=== PATIENT | male | born 1955 | race Caucasian/White ===

== ENCOUNTER 2024-02-25 07:46 | Inpatient (IN) | payer MEDICARE, OTHER, SELFPAY ==
[2024-02-25] VITALS (13 sets, daily range): BP systolic 14–134; BP diastolic 56–92; BMI 24.3; BMI 23.6
[2024-02-25 03:32] LABS: % Basophils 0.6 % (0-2); % Eosinophils 2.4 % (0-6); % Immature Granulocytes 0.3 % (0-0.5); % Lymphocytes 10.2 % (20.5-51.1); % Monocytes 13.4 % (1.7-9.3); % Neutrophils 73.1 % (42.2-75.2); Absolute Basophils 0.1 10^3/uL (0-0.2); Absolute Eosinophils 0.2 10^3/uL (0-0.7); Absolute Lymphocytes 0.9 10^3/uL (1.2-3.4); Absolute Monocytes 1.2 10^3/uL (0.1-0.6); Absolute Neutrophils 6.4 10^3/uL (1.4-6.5); Hematocrit 45.1 % (39.0-52.0); Mean Corp Hgb Conc. 35.5 g/dL (33.0-37.0); Mean Corpuscular Hgb 31.2 pg (27.0-31.0); Mean Corpuscular Volume 87.9 fL (80.0-94.0); Mean Platelet Volume 9.5 fL (7.4-10.4); Nucleated Red Blood Cells % 0 % (-); Platelet Count 214 10^3/uL (130-400); Red Blood Cell Count 5.13 10^6/uL (4.70-6.10); Red Cell Dist. Width 12.3 % (11.5-14.5); White Blood Cell Count 8.7 10^3/uL (4.8-10.8)
[2024-02-25 03:42] LABS: ALT (SGPT) 18 U/L (0-50); AST (SGOT) 21 U/L (17-59); Albumin 3.9 g/dl (3.5-5.0); Alkaline Phosphatase 45 U/L (38-126); Blood Urea Nitrogen 33 mg/dl (9-20); Calcium 9.4 mg/dl (8.4-10.2); Carbon Dioxide 26 mmol/L (22-30); Chloride 101 mmol/L (98-107); Estimated Creatinine Clearance 50 ml/min; Glucose 110 mg/dl (70-99); Lipase 556 U/L (23-300); Potassium 3.2 mmol/L (3.5-5.1); Sodium 139 mmol/L (135-145); Total Protein 6.2 g/dl (6.3-8.2); eGFR 51.03
--- NOTE | 2024-02-25 05:01 | ED.GENMED ---
History of Present Illness
General
Chief Complaint: Abdominal Pain
Source: patient
Exam Limitations: none
Time Seen by Provider: 02/25/24 03:59
Nursing documentation reviewed up to this point in time: agreed with
History of Present Illness
History of Present Illness:
68-year-old male presents with 4 weeks of worsening abdominal pain. Denies fever, chills, jaundice, nausea or vomiting. He states that his bowel movements have been normal. Patient does report having hiccups for the last 4 days. Pleasant history
of coronary artery disease hypertension hyperlipidemia. Has a history of of basal cell carcinoma. States that he drinks 2 ounces of alcohol per day. Does not smoke or engage in illicit drug use.
Review of Systems
Review of Systems
Allergies reviewed?: Yes
Other source history: family
All Other Systems: ROS reviewed and negative except as documented in HPI and ROS
Constitutional: Reports no symptoms; Denies weight loss
EENT: Reports no symptoms
Respiratory: Reports no symptoms
Cardiac: Denies chest pain or palpitations
ABD/GI: Reports abdominal pain and other (Hiccups); Denies nausea, vomiting, diarrhea, constipated, bloody stools, black stools or anorexia
: Reports no symptoms
Musculoskeletal: Reports no symptoms
Skin: Reports no symptoms
Neurological: Reports no symptoms
Endocrine: Reports no symptoms
Hematologic/Lymphatic: Reports no symptoms
Psychiatric: Reports no symptoms
Phy Exam
General Physical Exam
General Presentation: well appearing and no apparent distress
General Skin: warm and dry
General Habitus: normal
General Mental: alert
General Hydration: appears well hydrated
ENT Exam
ENT Exam: EOMI, pharynx normal, neck supple and normocephalic
Eye Exam
Eye Exam: PERRL, cornea clear and conjunctiva normal
Cardiovascular Exam
Cardiovascular Exam: regular rate/rhythm, no edema, no murmur and normal peripheral pulses
Pulmonary Exam
Pulmonary Exam: lungs clear, no respiratory distress, no rales, no crackles, no rhonchi, no stridor, no wheezing and no cough
Gastrointestinal Exam
Gastrointestinal Exam: normal bowel sounds, non tender, soft, no organomegaly, no pulsatile mass and non distended
Neurological Exam
Neurological Exam: alert, oriented x3, no motor deficits and speech normal
Musculoskeletal Exam
Musculoskeletal Exam: full ROM and no edema
Skin Exam
Skin Exam: normal color, warm/dry, no rash and no petechia
Psychiatric Exam
Psychiatric Exam: normal mood/affect
Course
Orders/Labs/Results
Orders:
Orders
02/25/24 03:09
IV Insert/Care/Rem.- Treatment PRN
02/25/24 03:25
Complete Blood Count/With Diff Urgent
Comprehensive Metabolic Panel Urgent
Lipase Urgent
Urinalysis Reflex To Culture Urgent
Date Specimen was Collected: 02/25/24
Time Specimen was Collected: 03:09
02/25/24 03:38
ECG [Electrocardiogram (*1)] Urgent
Reason for Study: Abdominal Pain
Cardiology Consult: Unknown
02/25/24 03:39
EKG- Treatment ONCE
02/25/24 03:59
CT Abd/pelvis W Iv Cont Urgent
Comment:
Reason For Exam: abdominal pain
02/25/24 05:39
Morphine Sulfate 4 mg IV NOW STA
02/25/24 05:40
Ondansetron Injectable [Zofran] 4 mg IV NOW STA
02/25/24 06:00
Flush (0.9% Sodium Chloride) [Flush (Nss)] See Dose Instructions IV PER PROTOCOL
Lactated Ringers [Lr] 1,000 ml IV 250 mls/hr
02/25/24 06:06
Add On- LAB Routine
Tests Added?: magnesium
Potassium Chloride [KCl] 20 meq 0.9% Sodium Chloride 250 ml [Nss] 250 ml IV NOW
Abnormal Lab Results
02/25/24
03:25
MCH 31.2 H pg
(27.0-31.0)
Absolute Lymphs (auto) 0.9 L 10^3/uL
(1.2-3.4)
Absolute Monos (auto) 1.2 H 10^3/uL
(0.1-0.6)
Lymphocytes % 10.2 L %
(20.5-51.1)
Monocytes % 13.4 H %
(1.7-9.3)
Potassium 3.2 L mmol/L
(3.5-5.1)
BUN 33 H mg/dl
(9-20)
Creatinine 1.5 H mg/dL
(0.7-1.3)
Glucose 110 H mg/dl
(70-99)
Total Protein 6.2 L g/dl
(6.3-8.2)
Lipase 556 H U/L
(23-300)
02/25/24 03:25
02/25/24 03:25
Vital Signs
Initial and Last Documented VS:
Initial Vital Signs
Temp Pulse Resp BP Pulse Ox
99.3 F 63 18 134/92 98
02/25/24 02:54 02/25/24 02:54 02/25/24 02:54 02/25/24 02:54 02/25/24 02:54
Last Documented Vital Signs
Temp Pulse Resp BP Pulse Ox
99.3 F 74 23 131/77 98
02/25/24 02:54 02/25/24 04:15 02/25/24 04:15 02/25/24 04:00 02/25/24 04:15
MDM/Problems Addressed
Differential Diagnosis Includes:
Pancreatitis, gallstone pancreatitis, pancreatic cancer
MDM/Problems Addressed:
68-year-old male with 4 weeks of worsening abdominal pain
*Radiology
Radiology exam reviewed: radiology read reviewed
*Critical Care Note
Total Time (30-74mins, 75-104mins- exclusive of procedures): Not Applicable
Update Note
Update Note:
CT abdomen and pelvis with IV contrast
IMPRESSION:
Inflammation about the pancreatic head suggesting pancreatitis; correlate with lipase. Masslike appearance of the pancreatic head suspicious for pancreatic malignancy. Multiple cystic foci. Recommend ERCP/EUS.
Mild cardiomegaly and coronary artery disease. Small hiatal hernia. Hepatic steatosis. No cholecystitis. No obstructing renal stone. Appendix is normal. No bowel obstruction. Diffuse athero-'s chronic disease of the aorta and its branches.
Spine degeneration.
Finalized at 4:43 AM EST
Lipase is 556
ED Attending Note
-
Portions of this chart may have been created with voice recognition software.� Occasional wrong word or��sound alike� substitutions may have occurred due to the inherent limitations of voice recognition software.
Discharge Plan
Departure
Patient Disposition: Admit
Date of Disposition: 02/25/24
Time of Disposition: 05:09
Admit to: Telemetry
Presentation/result/management discussed w/ accepting MD/DO: Hospitalist
Condition: Fair
Discharge Problem:
Acute pancreatitis, Mass of head of pancreas, Hiccups
Prescriptions:
No Action
[place] 3
2 g PO DAILY
Repatha Syringe
See Rx Instructions .ROUTE .COMPLEX
Rx Instructions:
140 mg intramuscularly q 14 days
aspirin
81 mg PO DAILY
ezetimibe
10 mg PO DAILY
losartan-hydrochlorothiazide
1 tab PO DAILY
Rx Instructions:
100/25 mg
nebivolol
10 mg PO DAILY
pantoprazole
40 mg PO DAILY
testosterone
0.4 ml SC WEEKLY
Rx Instructions:
200mg/ml
Referrals:
Carmen Debra,Ritesh, REHABILITATION COORDINATOR [Family Provider] -
Interventions
Interventions:
*Risk Screen - Suicide Last Done: 02/25/24 03:34
*General Assessment Last Done: 02/25/24 03:34
*Neglect/Abuse Screening Last Done: 02/25/24 03:34
ED- Fall Risk Assessment Last Done: 02/25/24 03:34
*ED COVID-19 Vaccine History Last Done: 02/25/24 03:34
ZC-Pvrffa-Ttbaocprno Assessment Last Done: 02/25/24 03:34
Discharge Date and Time
Print Language: MALTESE
[2024-02-25] MEDS: LR 1000 IV ×4 (05:37→22:05)
[2024-02-25] MEDS: MORPHINE SULFATE 4 MG IV (05:46)
[2024-02-25] MEDS: ZOFRAN 4 MG IV ×2 (05:47→16:03)
--- NOTE | 2024-02-25 05:47 | HPS.HSE ---
Family Physician
-
Family Physician: DAPHNEY Garner
Chief Complaint
-
abdominal pain
History of Present Illness
Mr. Dustin Hough is a 68 yo man wih hx basal cell carcinoma, daily alcohol use (2 oz alcohol/day) presents to the ER with abdominal pain x 4 weeks and hiccups over past 4 days to the point he's having difficulty sleeping.
Pain stretches across upper abdomen. He has been eating and drinking ok. Over the past 4 days he couldn't sleep secondary to hiccups which is what caused him to come to the ER. No fevers/chills. + nausea and vomiting from severe hiccups. No
diarrhea. No rash. No LE swelling. No weight loss.
Medical History
Past Medical History
Past Medical History: Reports GERD and HTN
Past Surgical History: Reports Other
Social History
Alcohol: Daily
Family History
Family History: Not pertinent
Allergies / Home Medications
Allergies reflects when Allergies were last updated in [facility].
Home Medications with original date entered in [facility]
Allergy/Medication List:
Allergies
Allergy/AdvReac Type Severity Reaction Status Date / Time
No Known Allergies Allergy Unverified 02/25/24 02:54
Home Medications
[place] 3 2 g PO DAILY 02/25/24
Repatha Syringe See Rx Instructions .Route .COMPLEX 02/25/24
aspirin 81 mg PO DAILY 02/25/24
ezetimibe 10 mg PO DAILY 02/25/24
losartan-hydrochlorothiazide 1 tab PO DAILY 02/25/24
nebivolol 10 mg PO DAILY 02/25/24
pantoprazole 40 mg PO DAILY 02/25/24
testosterone 0.4 ml SC WEEKLY 02/25/24
Review of Systems
-
History Source: Patient
A 12 point ROS was completed and negative except as noted: Yes
Physical Exam
Vital Signs
Vital Signs
Temp Pulse Resp BP Pulse Ox
99.3 F 74 23 131/77 98
02/25/24 02:54 02/25/24 04:15 02/25/24 04:15 02/25/24 04:00 02/25/24 04:15
Physical Exam
General: No Apparent Distress
HEENT: PERRLA
Respiratory: Clear; No Wheezes
Cardiac: S1/S2 and Regular Rhythm
GI: Other (tenderness mid epigastric region, no rebound or guarding )
Musculoskeletal: No Edema
Skin: Warm and Dry; No Rash
Neuro: AO x 3
Psych: Calm
Laboratory Results
-
02/25/24 03:25
02/25/24 03:25
Laboratory Results
Total Bilirubin 1.0 mg/dl (0.2-1.3) 02/25/24 03:25
AST 21 U/L (17-59) 02/25/24 03:25
ALT 18 U/L (0-50) 02/25/24 03:25
Alkaline Phosphatase 45 U/L (38-126) 02/25/24 03:25
Lipase 556 U/L (23-300) H 02/25/24 03:25
Data Reviewed
-
Diagnostic Radiology: Report Reviewed by me
Lab Data: Labs Reviewed by me
Impression/Plan
-
Mr. Dustin Hough is a 68 yo man wih hx basal cell carcinoma, daily alcohol use (2 oz alcohol/day) presents to the ER with abdominal pain x 4 weeks and hiccups over past 4 days to the point he's having difficulty sleeping.
Triage VS: T 99.3, P 63, RR 18, BP 134/92, SpO2 98%
LABS: WBC 8.7, Hg 16, PLT 214, Na 139, K+ 3.2, Cl 101, CO2 26, BUN 33, Cr 1.5, Glucose 110, liver enzymes WNL, Lipase 556
Abdomen/Pelvis CT with IV Contrast:
Inflammation about the pancreatic head suggesting pancreatitis; correlate with lipase. Masslike appearance of the pancreatic head suspicious for pancreatic malignancy. Multiple cystic foci. Recommend ERCP/EUS.
Mild cardiomegaly and coronary artery disease. Small hiatal hernia. Hepatic steatosis. No cholecystitis. NO obstructing renal stone. Appendix is normal. No bowel obstruction. Diffuse athero's chronic disease of the aorta and its branches.
Spine degeneration.
Pancreatitis
Abnormal CT with masslike appearance of pancreatic head
-admit to med/surg
-NPO
-LR @ 125
-GI consult (discussed with Dr. Mariscal this morning)
-MRI with and without contrast
-will likely need eventual ERCP/EUS
-pain control
-patient aware of concern for malignancy
-hold COMPUTER TECHNOLOGY TEACHER asa for now
Hiccups
-trial of reglan
Hypokalemia
-replete
-add on Mag
CAD
-COMPUTER TECHNOLOGY TEACHER Ezetimibe
-hold asa pre-biopsy
-COMPUTER TECHNOLOGY TEACHER Nebivolol
-receives Repatha injections outpatient
Acute Kidney Injury
-outpatient labs 11/18 with creatinine 1.35; creatinine 1.5 today. likely minor component of pre-renal injury given vomiting
-IVF as above
-monitor (lida post contrast)
Essential HTN
-hold COMPUTER TECHNOLOGY TEACHER Losartan/HCTZ for now
-COMPUTER TECHNOLOGY TEACHER Nebivolol
DVT PPx SCD
FULL CODE
76 minutes spent on patient evaluation
[2024-02-25 06:01] LABS: Urine Albumin Negative (Neg - Trace); Urine Bilirubin Negative (Negative); Urine Character Clear (Clear); Urine Color Yellow; Urine Glucose Negative (Negative); Urine Ketone 1+ (Negative); Urine Leukocyte Trace (Negative); Urine Nitrite Negative (Negative); Urine Occult Blood Negative (Negative); Urine Urobilinogen Negative (Neg - 1+); Urine pH 6.5 (5.0-9.0)
[2024-02-25] MEDS: KCL 260 MEQ IV (06:23)
[2024-02-25 06:35] LABS: Urine Bacteria Few (Negative); Urine Mucus Few
[2024-02-25 07:10] LABS: Magnesium 1.5 mg/dl (1.6-2.3)
[2024-02-25] MEDS: REGLAN 10 MG IV (07:21)
[2024-02-25] MEDS: PROTONIX IV 40 MG IV (07:22)
--- NOTE | 2024-02-25 10:24 | CON.GI ---
Consultation
-
Date/Time Consultation Requested: 02/25/2024
Date/Time Consultation Performed: 02/25/2024
Performing Provider: Lokesh Mariscal
Reason for Consultation: abnormal CT of GI tract
Medical History
Chief Complaint / HPI
Chief Complaint: abdominal pain, hiccups, abnormal CT of abdomen
History of Present Illness:
The patient is a 68 year old male w/ hx BCC, and CAD who p/w abdominal pain for past 4 weeks and associated hiccups. His pain is located in upper abdomen and had associated vomiting. Denies previous h/o pancreatitis. He drinks 2 oz of vodka
daily. No prior h/o jaundice.
Past Medical History
Past Medical History: GERD and HTN
Past Surgical History: Other
Social History
Tobacco: Former Smoker
Alcohol: Daily
Family History
Family History: Reviewed & Not Pertinent
Allergies / Home Medications
Allergy/AdvReac Type Severity Reaction Status Date / Time
No Known Allergies Allergy Unverified 02/25/24 02:54
�Medication �Instructions �Recorded
aspirin 81 mg chewable tablet 81 mg PO DAILY 02/25/24
evolocumab 140 mg/mL subcutaneous 140 mg SC Q2W 02/25/24
pen injector (Repatha SureClick)
ezetimibe 10 mg tablet (Zetia) 10 mg PO DAILY 02/25/24
losartan 100 1 tab PO DAILY 02/25/24
mg-hydrochlorothiazide 25 mg tablet
nebivolol 10 mg tablet 10 mg PO DAILY 02/25/24
omega-3 acid ethyl esters 1 gram 2 cap PO DAILY 02/25/24
capsule (Lovaza)
pantoprazole 40 mg tablet,delayed 40 mg PO DAILY 02/25/24
release (Protonix)
tadalafil 10 mg tablet 10 mg PO DAILYPRN PRN ed 02/25/24
testosterone enanthate 200 mg/mL 80 mg IM SA 02/25/24
intramuscular oil
Review of Systems
Vital Signs
Temp Pulse Resp BP Pulse Ox
99.3 F 80 12 124/77 97
02/25/24 02:54 02/25/24 07:30 02/25/24 07:30 02/25/24 07:00 02/25/24 08:45
Physical Exam
Exam
General: Well Developed and Well Nourished
HEENT: Normocephalic and Anicteric
Respiratory: Clear
Cardiac: S1/S2
GI: Soft, Non Distended and Tender (mildly tender to palpation in epigastric region)
Results
WBC 8.7 10^3/uL (4.8-10.8) 02/25/24 03:25
Hgb 16.0 g/dL (13.0-18.0) 02/25/24 03:25
Hct 45.1 % (39.0-52.0) 02/25/24 03:25
MCV 87.9 fL (80.0-94.0) 02/25/24 03:25
Plt Count 214 10^3/uL (130-400) 02/25/24 03:25
Absolute Neuts (auto) 6.4 10^3/uL (1.4-6.5) 02/25/24 03:25
Sodium 139 mmol/L (135-145) 02/25/24 03:25
Potassium 3.2 mmol/L (3.5-5.1) L 02/25/24 03:25
Chloride 101 mmol/L (98-107) 02/25/24 03:25
Carbon Dioxide 26 mmol/L (22-30) 02/25/24 03:25
BUN 33 mg/dl (9-20) H 02/25/24 03:25
Creatinine 1.5 mg/dL (0.7-1.3) H 02/25/24 03:25
Calcium 9.4 mg/dl (8.4-10.2) 02/25/24 03:25
Total Bilirubin 1.0 mg/dl (0.2-1.3) 02/25/24 03:25
AST 21 U/L (17-59) 02/25/24 03:25
ALT 18 U/L (0-50) 02/25/24 03:25
Alkaline Phosphatase 45 U/L (38-126) 02/25/24 03:25
Lipase 556 U/L (23-300) H 02/25/24 03:25
Diagnostic Image Results:
CT abdomen
Abdomen and pelvis: Liver shows diffuse decreased attenuation compatible with fatty infiltration. No abnormal focal hepatic lesions. No intrahepatic biliary dilation. Gallbladder is unremarkable. Spleen is unremarkable. Incidental note is made of
small accessory splenule. There is abnormal appearance of the head of the pancreas with pancreatic head area of mixed soft tissue and fluid attenuation measuring approximately 2.0 x 1.7 x 3.3 cm. Margins of this area are somewhat difficult to
distinguish from adjacent duodenum on this examination. However there is a large amount of surrounding inflammatory stranding and very small amount of adjacent unorganized peripancreatic fluid. Distal to the head, there is mild dilation of the main
pancreatic duct along the proximal pancreatic body, 5 mm diameter. Portal vein is patent. Splenic vein is patent. Superior mesenteric artery and vein are patent. The celiac axis is patent. The adrenal glands are unremarkable. Kidneys show contrast
within the collecting system which limits evaluation for small calculi. There is no hydronephrosis. The right kidney shows a subcentimeter low-attenuation focus, too small to characterize but most likely a cyst. Left kidney is unremarkable.
There is no bowel obstruction. Normal appendix. No abnormal focal inflammatory reaction of the bowel. No pneumoperitoneum. No retroperitoneal lymphadenopathy. No aneurysmal dilation of the aorta. There are moderate calcific atherosclerotic changes.
Urinary bladder is unremarkable. Prostate is unremarkable. The rectum is unremarkable. No free fluid is seen within the pelvis.
Bone: Degenerative changes. No abnormal focal osseous lesions.
IMPRESSION:
1. Abnormal appearance at the pancreatic head as above. While acute pancreatitis with associated cystic changes is a consideration, the findings are highly suspicious for pancreatic malignancy with associated inflammatory changes. This could be
further evaluated with endoscopic ultrasound.
2. Hepatic fatty infiltration.
Prior GI Procedures:
EGD:
Colonoscopy:
Assessment / Plan
-
The patient is a 68 year old male w/ hx BCC, and CAD who p/w abdominal pain for past 4 weeks and associated hiccups. His pain is located in upper abdomen and had associated vomiting. Denies previous h/o pancreatitis. He drinks 2 oz of vodka
daily. No prior h/o jaundice. CT on admission showed abnormal head of panc with stranding, suspicious for mass vs pancreatitis.
Impression / Rec:
1. Abdominal pain, abnormal CT - CT showed abnormal attenuation of head of pancreas with stranding and downstream dilation of pancreatic duct. Pt has associated abdominal pain. Lipase is elevated but does not meet the criteria for acute
pancreatitis. The CT was reviewed by me. Denies h/o pancreatitis or jaundice. Normal LFT. Given the suspicion for underlying malignancy, although may be limited due to stranding/inflammatory changes, will proceed with EUS for further evaluation
today.
Total Time Spent with Patient (in minutes): 55
-
-
Thank you for consultation and allowing me to participate in the patient's care. Please call the loss control representative GI physician during the after hours with any questions or concerns.
[2024-02-25] MEDS: BYSTOLIC 10 MG PO (12:13)
[2024-02-25] MEDS: ZETIA 10 MG PO (12:14)
--- NOTE | 2024-02-25 12:36 | W.PN.UPDATE ---
Update Note
Progress Note Update
Non-billable note
H&P entered 6 AM
currently having hiccups, some pain
for EUS today with GI
Assessment:
Pancreatic mass/inflammation
- not meeting criteria for acute pancreatitits
- continue IVF/NPO
- pain control, anti-emetics
- GI consulted; for EUS +/- biopsy today
- MRI also pending
- hiccups: prn Zofran, prn Thorazine
Hypokalemia
Hypomagnesemia
- replete prn
- repeat in AM labs
CAD
- MANAGER DISH Ezetimibe
- hold asa pre-biopsy
- MANAGER DISH Nebivolol
- receives Repatha injections outpatient
Acute Kidney Injury
- outpatient labs 11/18 with creatinine 1.35; creatinine 1.5 today. likely minor component of pre-renal injury given vomiting
- IVF as above
- monitor (lida post contrast)
Essential HTN
- hold MANAGER DISH Losartan/HCTZ for now
- MANAGER DISH Nebivolol
DVT ppx: SCDs
Code: Full
[2024-02-25] MEDS: MAGNESIUM SULFATE 50 IV (15:53)
[2024-02-25] MEDS: NEURONTIN 100 MG PO ×2 (15:54→22:03)
[2024-02-25] MEDS: DILAUDID 0.5 MG IV ×2 (16:03→19:40)
[2024-02-26] MEDS: DILAUDID 0.5 MG IV ×5 (01:05→21:53)
[2024-02-26 07:00] VITALS: BP 98/61
[2024-02-26 07:26] LABS: % Basophils 0.6 % (0-2); % Eosinophils 5.3 % (0-6); % Immature Granulocytes 0.4 % (0-0.5); % Monocytes 14.4 % (1.7-9.3); % Neutrophils 64.3 % (42.2-75.2); Absolute Eosinophils 0.3 10^3/uL (0-0.7); Absolute Lymphocytes 0.7 10^3/uL (1.2-3.4); Absolute Monocytes 0.7 10^3/uL (0.1-0.6); Hematocrit 41.3 % (39.0-52.0); Hemoglobin 14.1 g/dL (13.0-18.0); Mean Corp Hgb Conc. 34.1 g/dL (33.0-37.0); Mean Corpuscular Hgb 31.7 pg (27.0-31.0); Mean Corpuscular Volume 92.8 fL (80.0-94.0); Mean Platelet Volume 10.2 fL (7.4-10.4); Nucleated Red Blood Cells % 0 % (-); Platelet Count 174 10^3/uL (130-400); Red Blood Cell Count 4.45 10^6/uL (4.70-6.10); Red Cell Dist. Width 12.3 % (11.5-14.5); White Blood Cell Count 4.7 10^3/uL (4.8-10.8)
[2024-02-26] MEDS: ZETIA 10 MG PO (07:37)
[2024-02-26] MEDS: BYSTOLIC PO (07:37)
[2024-02-26] MEDS: PROTONIX IV 40 MG IV (07:37)
[2024-02-26] MEDS: NEURONTIN 100 MG PO ×3 (07:37→21:53)
[2024-02-26] MEDS: NSS (PRESERVATIVE FREE) 10 ML IV (07:38)
[2024-02-26 07:43] LABS: ALT (SGPT) 14 U/L (0-50); AST (SGOT) 19 U/L (17-59); Albumin 3.2 g/dl (3.5-5.0); Alkaline Phosphatase 42 U/L (38-126); Blood Urea Nitrogen 17 mg/dl (9-20); Calcium 8.7 mg/dl (8.4-10.2); Carbon Dioxide 28 mmol/L (22-30); Chloride 100 mmol/L (98-107); Estimated Creatinine Clearance 58 ml/min; Glucose 82 mg/dl (70-99); Magnesium 1.9 mg/dl (1.6-2.3); Potassium 3.3 mmol/L (3.5-5.1); Sodium 136 mmol/L (135-145); Total Protein 5.4 g/dl (6.3-8.2); eGFR > 60.00
[2024-02-26] MEDS: KCL 270 MEQ IV (09:13)
--- NOTE | 2024-02-26 10:10 | W.PN.HOSP.TC ---
Today's Communication/Plan
-
clears; IVF
follow GI recs closely
Assessment / Plan
Assessment / Plan
Assessment:
Pancreatic mass/inflammation
- CT: Abnormal appearance at the pancreatic head as above. While acute pancreatitis with associated cystic changes is a consideration, the findings are highly suspicious for pancreatic malignancy with associated inflammatory changes. This could be
further evaluated with endoscopic ultrasound.
- MRI: ACUTE NECROTIZING PANCREATITIS involving the pancreatic head, pancreaticoduodenal groove, and peripancreatic/periduodenal soft tissues with evidence for peripancreatic necrosis anterior to the pancreatic head. 3.3 cm complex fluid collection
in the pancreaticoduodenal groove suggesting an ACUTE NECROTIC COLLECTION.
- s/p EUS 02/24 with findings of dilated pancreatic ducts, pancreatic mass s/p FNA. path/cytology and CA 19-9 pending.
- continue IVF
- clears
- no role for Abx currently per GI
- pain control, anti-emetics
- hiccups: prn Zofran, trial Gabapentin
- GI following
Hypokalemia
Hypomagnesemia
- replete prn
- follow labs
CAD
- STOCK CHECKERER Ezetimibe
- continue STOCK CHECKERER aspirin at this time, cleared with GI
- STOCK CHECKERER Nebivolol
- receives Repatha injections outpatient
Acute Kidney Injury
- outpatient labs 11/18 with creatinine 1.35; creatinine 1.5 today. likely minor component of pre-renal injury given vomiting
- IVF as above
- monitor (lida post contrast)
Essential HTN
- hold STOCK CHECKERER Losartan/HCTZ for now
- STOCK CHECKERER Nebivolol
DVT ppx: SCDs
Code: Full
Anticipated Discharge: > 48 hours
Subjective/Interval History
-
Date of Service: February 26, 2024
on clears
on IVF
pain /10 currently; hiccups continue
Objective Data
-
Labs:
Laboratory Results
02/26/24
06:30
WBC 4.7 L
Hgb 14.1
Hct 41.3
Plt Count 174
Sodium 136
Potassium 3.3 L
Chloride 100
Carbon Dioxide 28
BUN 17
Creatinine 1.3
Glucose 82
Calcium 8.7
Total Bilirubin 1.0
AST 19
ALT 14
Alkaline Phosphatase 42
Vital Signs:
Vital Signs
Temp Pulse Resp BP Pulse Ox
98.2 F 64 12 98/61 99
02/26/24 07:00 02/26/24 07:00 02/26/24 07:00 02/26/24 07:37 02/26/24 07:00
I&O
02/25/24 02/26/24 02/27/24
06:59 06:59 06:59
Intake Total 50 / 50
Balance 50 / 50
Physical Exam
-
General: No Apparent Distress
HEENT: Normocephalic and Atraumatic
Respiratory: Negative Wheezes
Cardiac: Regular Rhythm and S1/S2
GI: Soft
Musculoskeletal: No Edema
Neuro: AO x 3
Psych: Calm
Data Reviewed
-
Total Time Spent with Patient (in minutes): 41
Labs: Labs Reviewed by me
[2024-02-26] MEDS: LR IV (10:15)
--- NOTE | 2024-02-26 12:04 | W.PN.GI.CBS2 ---
Today's Communication / Plan
-
IVF, CLD if tolerates
Assessment / Plan
-
The patient is a 68 year old male w/ hx BCC, and CAD who p/w abdominal pain for past 4 weeks and associated hiccups. His pain is located in upper abdomen and had associated vomiting. Denies previous h/o pancreatitis. He drinks 2 oz of vodka
daily. No prior h/o jaundice. CT on admission showed abnormal head of panc with stranding, suspicious for mass vs pancreatitis.
Impression / Rec:
1. Abdominal pain, abnormal CT - CT showed abnormal attenuation of head of pancreas with stranding and downstream dilation of pancreatic duct. Pt has associated abdominal pain. Lipase is elevated but does not meet the criteria for acute
pancreatitis. The CT was reviewed by me. Denies h/o pancreatitis or jaundice. Normal LFT. Given the suspicion for underlying malignancy, although may be limited due to stranding/inflammatory changes, EUS performed yesterday.
EUS showed an area of abnormal endosonography features in the head of pancreas which may represent underlying mass lesion. FNA were performed. Patient was off the floor for MRI today but as per nursing staff patient had significant epigastric
pain. He is having MRI of abdomen today. Patient is possibly having pancreatitis from FNA. Recommend conservative management with IV fluids. CLD if patient tolerates. Gradual advancement of diet as tolerated and if patient tolerates solid diet
and pain improves, then can DC home with OP follow-up with me.
Total Time Spent with Patient (in minutes): 35
Subjective
Subjective
Date of Service: February 26, 2024
Patient was off the floor for MRI but as per nursing staff he was having 8 out of 10 epigastric pain.
Objective
Data Reviewed
Laboratory Data:
Laboratory Results
02/26/24 06:30
02/26/24 06:30
Laboratory Results
Magnesium 1.9 mg/dl (1.6-2.3) 02/26/24 06:30
Total Bilirubin 1.0 mg/dl (0.2-1.3) 02/26/24 06:30
AST 19 U/L (17-59) 02/26/24 06:30
ALT 14 U/L (0-50) 02/26/24 06:30
Alkaline Phosphatase 42 U/L (38-126) 02/26/24 06:30
Lipase 556 U/L (23-300) H 02/25/24 03:25
Vital Signs and I&O:
Vital Signs
Temp Pulse Resp BP Pulse Ox
98.2 F 64 12 98/61 99
02/26/24 07:00 02/26/24 07:00 02/26/24 07:00 02/26/24 07:37 02/26/24 07:00
I&O
02/25/24 02/26/24 02/27/24
06:59 06:59 06:59
Intake Total 50 / 50
Balance 50 / 50
[2024-02-26] MEDS: LOW STRENGTH ASPIRIN 81 MG PO (12:38)
[2024-02-26 15:26] VITALS: BP 134/81
[2024-02-26] MEDS: LR 1000 IV (18:35)
[2024-02-26 23:09] VITALS: BP 133/81
[2024-02-27] MEDS: LR 1000 IV ×3 (02:42→23:19)
[2024-02-27 07:58] VITALS: BP 121/78
[2024-02-27 08:44] LABS: Hematocrit 43.9 % (39.0-52.0); Hemoglobin 15.3 g/dL (13.0-18.0); Mean Corp Hgb Conc. 34.9 g/dL (33.0-37.0); Mean Corpuscular Hgb 32.2 pg (27.0-31.0); Mean Corpuscular Volume 92.4 fL (80.0-94.0); Mean Platelet Volume 10.2 fL (7.4-10.4); Platelet Count 189 10^3/uL (130-400); Red Blood Cell Count 4.75 10^6/uL (4.70-6.10); Red Cell Dist. Width 12.2 % (11.5-14.5)
[2024-02-27 08:56] LABS: ALT (SGPT) 16 U/L (0-50); AST (SGOT) 18 U/L (17-59); Albumin 3.3 g/dl (3.5-5.0); Alkaline Phosphatase 46 U/L (38-126); Blood Urea Nitrogen 11 mg/dl (9-20); Calcium 9.1 mg/dl (8.4-10.2); Carbon Dioxide 26 mmol/L (22-30); Chloride 102 mmol/L (98-107); Estimated Creatinine Clearance 68 ml/min; Glucose 152 mg/dl (70-99); Potassium 3.7 mmol/L (3.5-5.1); Sodium 139 mmol/L (135-145); Total Bilirubin 0.9 mg/dl (0.2-1.3); Total Protein 5.6 g/dl (6.3-8.2); eGFR > 60.00
[2024-02-27] MEDS: DILAUDID 0.5 MG IV ×3 (09:16→20:35)
[2024-02-27] MEDS: NEURONTIN 100 MG PO ×2 (09:16→15:42)
[2024-02-27] MEDS: LOW STRENGTH ASPIRIN 81 MG PO (09:16)
[2024-02-27] MEDS: BYSTOLIC 10 MG PO (09:16)
[2024-02-27] MEDS: ZETIA 10 MG PO (09:16)
[2024-02-27] MEDS: PROTONIX IV 40 MG IV (09:20)
[2024-02-27] MEDS: NSS (PRESERVATIVE FREE) 10 ML IV (09:20)
--- NOTE | 2024-02-27 11:05 | W.PN.HOSP.TC ---
Today's Communication/Plan
-
diet advance to fulls
renew IVF
supportive care
follow GI recs
Assessment / Plan
Assessment / Plan
Assessment:
Pancreatic mass/inflammation
- CT: Abnormal appearance at the pancreatic head as above. While acute pancreatitis with associated cystic changes is a consideration, the findings are highly suspicious for pancreatic malignancy with associated inflammatory changes. This could be
further evaluated with endoscopic ultrasound.
- MRI: ACUTE NECROTIZING PANCREATITIS involving the pancreatic head, pancreaticoduodenal groove, and peripancreatic/periduodenal soft tissues with evidence for peripancreatic necrosis anterior to the pancreatic head. 3.3 cm complex fluid collection
in the pancreaticoduodenal groove suggesting an ACUTE NECROTIC COLLECTION.
- s/p EUS 02/24 with findings of dilated pancreatic ducts, pancreatic mass s/p FNA. path/cytology and CA 19-9 pending.
- continue IVF x 2 further bags
- diet: Full liquids today per GI
- no role for Abx currently per GI
- pain control, anti-emetics
- hiccups: prn Zofran, trial Gabapentin
- GI following
Hypokalemia
Hypomagnesemia
- replete prn
- follow labs
CAD
- HAZMAT CDL DRIVER Ezetimibe
- continue HAZMAT CDL DRIVER aspirin at this time, cleared with GI
- HAZMAT CDL DRIVER Nebivolol
- receives Repatha injections outpatient; will hold while inpatient
Acute Kidney Injury
- outpatient labs 11/18 with creatinine 1.35; creatinine 1.5 today. likely minor component of pre-renal injury given vomiting
- IVF as above
- monitor BMP. Cr. 1.1 today
Essential HTN
- hold HAZMAT CDL DRIVER Losartan/HCTZ for now
- HAZMAT CDL DRIVER Nebivolol
DVT ppx: SCDs
Code: Full
Anticipated Discharge: 24 - 48 hours
Subjective/Interval History
-
Date of Service: February 27, 2024
pain minimal, hiccups improving
tolerating clears
Objective Data
-
Labs:
Laboratory Results
02/27/24
08:06
WBC 7.0
Hgb 15.3
Hct 43.9
Plt Count 189
Sodium 139
Potassium 3.7
Chloride 102
Carbon Dioxide 26
BUN 11
Creatinine 1.1
Glucose 152 H
Calcium 9.1
Total Bilirubin 0.9
AST 18
ALT 16
Alkaline Phosphatase 46
Vital Signs:
Vital Signs
Temp Pulse Resp BP Pulse Ox
99.1 F 74 20 121/78 99
02/27/24 07:58 02/27/24 07:58 02/27/24 07:58 02/27/24 07:58 02/27/24 07:58
I&O
02/26/24 02/27/24 02/28/24
06:59 06:59 06:59
Intake Total 50 / 50 2270 / 2270
Balance 50 / 50 2270 / 2270
Physical Exam
-
General: No Apparent Distress
HEENT: Normocephalic and Atraumatic
Respiratory: Negative Wheezes
Cardiac: Regular Rhythm
GI: Soft
Genito-urinary: No Costovertebral Tender
Neuro: AO x 3
Psych: Calm
Data Reviewed
-
Total Time Spent with Patient (in minutes): 41
Labs: Labs Reviewed by me
--- NOTE | 2024-02-27 14:23 | W.PN.GI.CBS2 ---
Today's Communication / Plan
-
advance diet
Assessment / Plan
-
The patient is a 68 year old male w/ hx BCC, and CAD who p/w abdominal pain for past 4 weeks and associated hiccups. His pain is located in upper abdomen and had associated vomiting. Denies previous h/o pancreatitis. He drinks 2 oz of vodka
daily. No prior h/o jaundice. CT on admission showed abnormal head of panc with stranding, suspicious for mass vs pancreatitis.
Impression / Rec:
1. Abdominal pain, abnormal CT - CT showed abnormal attenuation of head of pancreas with stranding and downstream dilation of pancreatic duct. Pt has associated abdominal pain. Lipase is elevated but does not meet the criteria for acute
pancreatitis. The CT was reviewed by me. Denies h/o pancreatitis or jaundice. Normal LFT. Given the suspicion for underlying malignancy, although may be limited due to stranding/inflammatory changes, EUS performed yesterday.
Patient had MRI yesterday which showed acute necrotizing pancreatitis in the head and pancreaticoduodenal groove with 3.3 cm complex fluid collection in the pancreaticoduodenal groove suggesting an acute necrotic collection. Patient had significant
epigastric pain yesterday but is easing off somewhat today. Can advance to full liquid diet today and possibly solid tomorrow. If he tolerates solid diet with minimal pain med requirement, he should be able to DC home. Will need to follow-up with
me in 4 weeks for repeat imaging.
Total Time Spent with Patient (in minutes): 35
Subjective
Subjective
Date of Service: February 27, 2024
pain present although easing off
Objective
Data Reviewed
Laboratory Data:
Laboratory Results
02/27/24 08:06
02/27/24 08:06
Laboratory Results
Magnesium 1.9 mg/dl (1.6-2.3) 02/26/24 06:30
Total Bilirubin 0.9 mg/dl (0.2-1.3) 02/27/24 08:06
AST 18 U/L (17-59) 02/27/24 08:06
ALT 16 U/L (0-50) 02/27/24 08:06
Alkaline Phosphatase 46 U/L (38-126) 02/27/24 08:06
Lipase 556 U/L (23-300) H 02/25/24 03:25
Vital Signs and I&O:
Vital Signs
Temp Pulse Resp BP Pulse Ox
99.1 F 74 20 121/78 99
02/27/24 07:58 02/27/24 07:58 02/27/24 07:58 02/27/24 07:58 02/27/24 07:58
I&O
02/26/24 02/27/24 02/28/24
06:59 06:59 06:59
Intake Total 50 / 50 0 / 2270
Balance 50 / 50 0 / 227
[2024-02-27 15:49] VITALS: BP 146/81
[2024-02-27 21:12] LABS: Glucose - Point of Care 132 mg/dl (70-99)
[2024-02-27 23:40] VITALS: BP 134/78
--- NOTE | 2024-02-28 06:51 | W.PN.HOSP.TC ---
Today's Communication/Plan
-
Discharge
Assessment / Plan
Assessment / Plan
Physical Exam
General: No Apparent Distress, appears comfortable at this time.
HEENT: Normocephalic and Atraumatic
Respiratory: clear to auscultation bilateral, no wheezes or crackles
Cardiac: Regular Rhythm
GI: Soft nontender bowel sounds present
Neuro: AO x 3
Psych: Calm
Assessment:
68M hx Basal Cell Ca daily ETOH use here with pancreatitis and findings/imaging suggestive of Pancreatic Malignancy.
Pancreatic mass/inflammation
- CT: Abnormal appearance at the pancreatic head. While acute pancreatitis with associated cystic changes is a consideration, the findings were highly suspicious for pancreatic malignancy with associate inflammatory changes.
- MRI: ACUTE NECROTIZING PANCREATITIS involving the pancreatic head, pancreaticoduodenal groove, and peripancreatic/periduodenal soft tissues with evidence for peripancreatic necrosis anterior to the pancreatic head. 3.3 cm complex fluid collection
in the pancreaticoduodenal groove suggesting an acute necrotic collection.
- s/p EUS 02/24 with findings of dilated pancreatic ducts, pancreatic mass s/p FNA. path/cytology pending, CA 19-9 10 wnl (<=35).
- IVF support completed, tolerating regular diet, advanced as per GI
-hiccups resolved
-GI eval appreciated, outpt follow up recommended
Hypokalemia
Hypomagnesemia
- repleted
-resolved
CAD
- DENTURE MODEL MAKER Ezetimibe
- continue DENTURE MODEL MAKER aspirin at this time, cleared with GI
- DENTURE MODEL MAKER Nebivolol
- receives Repatha injections outpatient ok to resume on discharge
Acute Kidney Injury
- likely pre-renal w/ N/V
-Initial Cr 1.5 resolved with IVF likely Baseline Cr 1.1
Essential HTN
- DENTURE MODEL MAKER Losartan/HCTZ held d/t soft pressures and JIAN as above (since resolved). Ok to resume on discharge.
- DENTURE MODEL MAKER Nebivolol
DVT ppx: SCDs
Code: Full
Medically stable for discharge home with outpatient follow up recommendations.
Total Time Preparing Discharge ___50____ minutes including examination of the patient, summary of the hospital stay, instructions for continuing care to all relevant caregivers; and preparation of discharge records, prescriptions, and referral
forms if necessary.
Anticipated Discharge: Today
Subjective/Interval History
-
Date of Service: February 28, 2024
Seen and examined at bedside in no acute distress sitting up comfortably in bed. Reports overall feeling well. Tolerated regular diet. Denies pain or nausea. Eager to go home.
Objective Data
-
Labs:
Laboratory Results
02/28/24
06:00
WBC Pending
Hgb Pending
Hct Pending
Plt Count Pending
Sodium Pending
Potassium Pending
Chloride Pending
Carbon Dioxide Pending
BUN Pending
Creatinine Pending
Glucose Pending
Calcium Pending
Total Bilirubin Pending
AST Pending
ALT Pending
Alkaline Phosphatase Pending
Vital Signs:
Vital Signs
Temp Pulse Resp BP Pulse Ox
98.3 F 74 18 134/78 97
02/27/24 23:40 02/27/24 23:40 02/27/24 23:40 02/27/24 23:40 02/27/24 23:40
I&O
02/26/24 02/27/24 02/28/24
06:59 06:59 06:59
Intake Total 50 / 50 2269 / 2269
Balance 50 / 50 2269 / 2269
[2024-02-28 07:22] VITALS: BP 130/79
[2024-02-28] MEDS: ZETIA 10 MG PO (08:17)
[2024-02-28] MEDS: PROTONIX IV 40 MG IV (08:17)
[2024-02-28] MEDS: LOW STRENGTH ASPIRIN 81 MG PO (08:17)
[2024-02-28] MEDS: NSS (PRESERVATIVE FREE) 10 ML IV (08:17)
[2024-02-28] MEDS: BYSTOLIC 10 MG PO (08:17)
[2024-02-28 08:36] LABS: Hematocrit 43.5 % (39.0-52.0); Hemoglobin 15.1 g/dL (13.0-18.0); Mean Corp Hgb Conc. 34.7 g/dL (33.0-37.0); Mean Corpuscular Hgb 31.3 pg (27.0-31.0); Mean Corpuscular Volume 90.2 fL (80.0-94.0); Mean Platelet Volume 10.2 fL (7.4-10.4); Platelet Count 214 10^3/uL (130-400); Red Blood Cell Count 4.82 10^6/uL (4.70-6.10); Red Cell Dist. Width 12.2 % (11.5-14.5); White Blood Cell Count 5.1 10^3/uL (4.8-10.8)
[2024-02-28 08:49] LABS: ALT (SGPT) 17 U/L (0-50); AST (SGOT) 23 U/L (17-59); Albumin 3.5 g/dl (3.5-5.0); Alkaline Phosphatase 41 U/L (38-126); Blood Urea Nitrogen 9 mg/dl (9-20); Calcium 9.5 mg/dl (8.4-10.2); Carbon Dioxide 30 mmol/L (22-30); Chloride 101 mmol/L (98-107); Estimated Creatinine Clearance 68 ml/min; Glucose 138 mg/dl (70-99); Potassium 3.6 mmol/L (3.5-5.1); Sodium 139 mmol/L (135-145); Total Bilirubin 0.8 mg/dl (0.2-1.3); Total Protein 6.1 g/dl (6.3-8.2); eGFR > 60.00
--- NOTE | 2024-02-28 10:11 | W.PN.GI.CBS2 ---
Today's Communication / Plan
-
advance to solid diet, d/c home if tolerates, GI s/o
Assessment / Plan
-
The patient is a 68 year old male w/ hx BCC, and CAD who p/w abdominal pain for past 4 weeks and associated hiccups. His pain is located in upper abdomen and had associated vomiting. Denies previous h/o pancreatitis. He drinks 2 oz of vodka
daily. No prior h/o jaundice. CT on admission showed abnormal head of panc with stranding, suspicious for mass vs pancreatitis.
Impression / Rec:
1. Abdominal pain, abnormal CT - CT showed abnormal attenuation of head of pancreas with stranding and downstream dilation of pancreatic duct. Pt has associated abdominal pain. Lipase is elevated but does not meet the criteria for acute
pancreatitis. The CT was reviewed by me. Denies h/o pancreatitis or jaundice. Normal LFT. Given the suspicion for underlying malignancy, although may be limited due to stranding/inflammatory changes, EUS performed yesterday.
Patient had MRI yesterday which showed acute necrotizing pancreatitis in the head and pancreaticoduodenal groove with 3.3 cm complex fluid collection in the pancreaticoduodenal groove suggesting an acute necrotic collection.
Tolerated FLD o/n, advance to solid diet, if tolerates then can d/c home with GI f/u. Will s/o, call with questions.
Total Time Spent with Patient (in minutes): 35
Subjective
Subjective
Date of Service: February 28, 2024
Feels well, tolerated FLD, denies pain.
Objective
Data Reviewed
Laboratory Data:
Laboratory Results
02/28/24 07:58
02/28/24 07:58
Laboratory Results
Magnesium 1.9 mg/dl (1.6-2.3) 02/26/24 06:30
Total Bilirubin 0.8 mg/dl (0.2-1.3) 02/28/24 07:58
AST 23 U/L (17-59) 02/28/24 07:58
ALT 17 U/L (0-50) 02/28/24 07:58
Alkaline Phosphatase 41 U/L (38-126) 02/28/24 07:58
Lipase 556 U/L (23-300) H 02/25/24 03:25
Vital Signs and I&O:
Vital Signs
Temp Pulse Resp BP Pulse Ox
98.6 F 62 20 130/79 98
02/28/24 07:22 02/28/24 08:17 02/28/24 07:22 02/28/24 08:17 02/28/24 07:22
I&O
02/27/24 02/28/24 02/29/24
06:59 06:59 06:59
Intake Total 2270 / 2270 2200 / 2200
Balance 2270 / 2270 2200 / 2200
[2024-02-28 12:44] LABS: CA 19-9 10 U/mL (<=35)
[2024-02-28 15:23] VITALS: BP 150/95
--- NOTE | 2024-02-28 16:18 | W.DCSUMMARY ---
Discharge Summary
Discharge Data
Date of Admission: 02/25/24
Date of Discharge: 02/28/24
-
Pending Results: No
Discharge Plan
-
Patient Disposition: Home (Routine Discharge)
Discharge Diagnosis/Procedures: Acute Necrotizing Pancreatitis resolving
Pancreatic Mass/Possible Malignancy status post Endoscopic Ultrasound with fine needle aspiration
Acute Kidney Injury resolved
Hypertension
Hypokalemia resolved
Hypomagnesemia resolved
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
Fatty Liver Disease
Condition: Fair
Diet: Regular
Activity: As tolerated
Driving Restrictions: No driving while on opiate pain meds (oxycodone)
Bathing Restrictions: None
Activity Restrictions/Additional Instructions:
Please follow up with primary care provider in 1 week of discharge, GI in 2-4 weeks of discharge, and (if pathology returns positive for malignancy) Oncology in 1 month of discharge.
Oxycodone has been prescribed as needed for moderate to severe pain, 5 day supply.
Please take medications as prescribed/recommended and follow up with primary care provider and/or other healthcare provider involved in your care for refills and/or further adjustment to your medication regimen as necessary.
Referrals:
Dheeraj Quinn DO [Active] - in one month
Ritesh Rizzo CRNP [Family Provider] - in one week
Lokesh Mariscal MD [Active] - in two to four weeks
Prescriptions:
New
oxycodone 5 mg tablet
5 mg PO BID PRN (Reason: moderate severe pain) Qty: 10 0RF
Continued
losartan-hydrochlorothiazide 100-25 mg Tablet
1 tab PO DAILY
pantoprazole [Protonix] 40 mg Tablet,Delayed Release (Dr/Ec)
40 mg PO DAILY
aspirin 81 mg Tablet,Chewable
81 mg PO DAILY
testosterone enanthate 200 mg/mL oil
80 mg IM SA
ezetimibe [Zetia] 10 mg Tablet
10 mg PO DAILY
omega-3 acid ethyl esters [Lovaza] 1 gram Capsule
2 cap PO DAILY
nebivolol 10 mg Tablet
10 mg PO DAILY
Repatha SureClick 140 mg/mL Pen Injector
140 mg SC Q2W
tadalafil 10 mg Tablet
10 mg PO DAILYPRN PRN (Reason: ed)
Discharge Orders:
Discharge Patient (As Directed); Ordered 02/28/24
Ordered By: Zan Nugent
Discharge Date and Time
Print Language: SYRIAN
== END 2024-02-28 17:30 | disposition home or self-care (01) | DRG 439 ==
LOC: 4 WEST ACU 07:46
PROVIDERS: Internal Medicine; ADMITTING PHYSICIAN Student in an Organized Health Care Education/Training Program; ATTENDING PHYSICIAN Internal Medicine; CONSULT PHYSICIAN Internal Medicine Gastroenterology; EMERGENCY PHYSICIAN Student in an Organized Health Care Education/Training Program; FAMILY PHYSICIAN Nurse Practitioner Family
PROC: 0F9G8ZX Drainage of Pancreas, Via Natural or Artificial Opening Endoscopic, Diagnostic (ICD-10-PCS; 2024-02-25)
PROC: 0DB68ZX Excision of Stomach, Via Natural or Artificial Opening Endoscopic, Diagnostic (ICD-10-PCS; 2024-02-25)
PROC: 0DB98ZX Excision of Duodenum, Via Natural or Artificial Opening Endoscopic, Diagnostic (ICD-10-PCS; 2024-02-25)
DX: K85.91 Acute pancreatitis with uninfected necrosis, unspecified (principal); C25.0 Malignant neoplasm of head of pancreas; N17.9 Acute kidney failure, unspecified; Q89.09 Congenital malformations of spleen; R06.6 Hiccough; I25.10 Atherosclerotic heart disease of native coronary artery without angina pectoris; I10 Essential (primary) hypertension; E78.5 Hyperlipidemia, unspecified; K31.89 Other diseases of stomach and duodenum; K44.9 Diaphragmatic hernia without obstruction or gangrene; K76.0 Fatty (change of) liver, not elsewhere classified; E83.42 Hypomagnesemia; K21.9 Gastro-esophageal reflux disease without esophagitis; E87.6 Hypokalemia; F10.90 Alcohol use, unspecified, uncomplicated; Z85.828 Personal history of other malignant neoplasm of skin; Z79.82 Long term (current) use of aspirin; Z87.891 Personal history of nicotine dependence
CPT/HCPCS: 88172; 88173; 88305; 74177; 74183; 80053; 81003; 81015; 82962; 83690; 83735; 85025; 85027; 86301; 88341; 88342; 93005; 96374; 96375; 99285; A9575; Q9967

== ENCOUNTER → 2024-05-08 13:09 | Outpatient (REF) | payer MEDICARE, OTHER, SELFPAY | LOC: PAVMRI 13:09 | PROVIDERS: ATTENDING PHYSICIAN Internal Medicine Gastroenterology; FAMILY PHYSICIAN Nurse Practitioner Family | DX: K85.91 Acute pancreatitis with uninfected necrosis, unspecified (principal) | CPT/HCPCS: 74183; A9575 ==